=== PATIENT | male | born 1960 | race African-American/Black ===

== ENCOUNTER 2021-09-02 23:50 | Inpatient (IN) | payer MEDICAID ==
[~2021-09-02] VITALS: Ht 167.6 cm; Wt 54.0 kg
[2021-09-03] MEDS ORDERED: METHYLPREDNISOLONE SOD SUCC 125 MG/2 ML VIAL IV STA (00:47)
[2021-09-03] MEDS ORDERED: ALBUTEROL (0.083%) 2.5MG/3ML NEB HHN STA (00:47)
[2021-09-03] MEDS ORDERED: IPRATROPIUM BROMIDE (0.02%) 0.5MG/2.5ML NEB HHN STA (00:47)
[2021-09-03] MEDS ORDERED: MORPHINE SULFATE 4 MG/ML CPJ (NOT FOR IM USE) IV STA (00:47)
[2021-09-03] MEDS ORDERED: ONDANSETRON HCL 4MG/2ML INJ IV STA (00:47)
[2021-09-03] MEDS ORDERED: SODIUM CHLORIDE 0.9% 1,000 ML IV ONE (01:00)
[2021-09-03] MEDS ORDERED: AZITHROMYCIN 500MG/250ML 250 ML IV ONE (01:15)
[2021-09-03] MEDS ORDERED: CEFTRIAXONE 1 G PREMIX 50 ML IV ONE (01:15)
[2021-09-03] MEDS ORDERED: SODIUM CHLORIDE 0.9% 1000ML BAG (SEPSIS BOLUS) IV ONE (01:15)
[2021-09-03] MEDS ORDERED: FAMOTIDINE 20MG/2ML VIAL IV ONE (01:15)
[2021-09-03 01:29] LABS: INR 1.2; PARTIAL THROMBOPLASTIN TIME 29.6 sec (23.4-31.0); PROTHROMBIN TIME 12.3 sec (9.6-11.0)
[2021-09-03 01:46] LABS: HEMATOCRIT. 35.9 % (42.0-52.0); HEMOGLOBIN. 12.1 g/dL (14.0-18.0); MEAN CORPUSCULAR HEMOGLOBIN 34.4 pg (28.0-32.0); MEAN CORPUSCULAR VOLUME 101.8 fL (80.0-94.0); MEAN PLATELET VOLUME 6.8 fl (7.4-10.4); PLATELET 548 x1000/uL (130-400); RED BLOOD CELL COUNT 3.53 mill/uL (4.7-6.1); RED CELL DISTRIBUTION WIDTH 12.7 % (11.6-14.6)
[2021-09-03 01:51] LABS: CHLORIDE 100 mEq/L (98-107)
[2021-09-03 04:31] LABS: PLATELET ESTIMATE INCREASED
[2021-09-03 05:40] LABS: CLARITY URINE CLEAR (CLEAR); COLOR URINE YELLOW (YELLOW); KETONES URINE 3+ (NEGATIVE); LEUKOCYTE ESTERASE URINE NEGATIVE (NEGATIVE); NITRITE URINE NEGATIVE (NEGATIVE); OCCULT BLOOD URINE NEGATIVE (NEGATIVE); PH URINE 5.5 (4.5-8.0); PROTEIN URINE 1+ (NEGATIVE); SPECIFIC GRAVITY URINE 1.026 (1.005-1.030)
[2021-09-03] MEDS: HYDROCODONE/ACETAMINOPHEN 10/325MG TABLET PO PRN (05:58)
[2021-09-03] MEDS ORDERED: NALOXONE HCL 0.4 MG/ML 1ML VIAL IV PRN (06:00)
[2021-09-03] MEDS ORDERED: ACETAMINOPHEN 325MG TABLET PO PRN (08:15)
[2021-09-03] MEDS ORDERED: CEFTRIAXONE 1 G PREMIX 50 ML IV SCH (08:15)
[2021-09-03] MEDS ORDERED: ONDANSETRON HCL 4MG/2ML INJ IV PRN (08:15)
[2021-09-03] MEDS: DEXT 5%/0.45% NACL 1000ML 1,000 ML IV SCH ×2 (08:56→19:55)
[2021-09-03] MEDS ORDERED: THIAMINE HCL 100MG TABLET PO SCH (09:00)
[2021-09-03] MEDS: METHYLPREDNISOLONE SOD SUCC 40 MG/ML VIAL IV SCH ×2 (10:07→18:08)
[2021-09-03 15:02] LABS: *AMPHETAMINES SCREEN URINE NEGATIVE (NEGATIVE); *BARBITURATES SCREEN URINE NEGATIVE (NEGATIVE); *BENZODIAZEPINES SCREEN URINE NEGATIVE (NEGATIVE); METHADONE URINE SCREEN NEGATIVE (NEGATIVE); OPIATES URINE SCREEN PRESUMTIVE POSITIVE (NEGATIVE)
[2021-09-03 15:03] LABS: CANNABINOID URINE SCREEN PRESUMTIVE POSITIVE (NEGATIVE); PHENCYCLIDINE URINE SCREEN NEGATIVE (NEGATIVE)
[2021-09-03 15:05] LABS: *COCAINE SCREEN URINE NEGATIVE (NEGATIVE)
[2021-09-03] MEDS: THIAMINE HCL 100MG TABLET PO SCH (15:07)
[2021-09-03] MEDS ORDERED: SODIUM BICARBONATE 4% (2.4MEQ) 5ML VIAL IV ONE (15:15)
[2021-09-03] MEDS ORDERED: LIDOCAINE HCL 1% 30ML VIAL (10MG/ML) ONE (15:15)
[2021-09-03 21:00] VITALS: BP 126/82
[2021-09-03] MEDS: FAMOTIDINE 20MG/2ML VIAL IV SCH (21:36)
[2021-09-03] MEDS: MORPHINE SULFATE 2 MG/ML CPJ (NOT FOR IM USE) IV PRN (21:37)
[2021-09-03 23:00] VITALS: BP 126/82
[2021-09-04] VITALS: BP 118/83
[2021-09-04] MEDS: CEFTRIAXONE 1,000 MG in DEXTROSE 5% WATER 50 ML IV SCH (01:12)
[2021-09-04] MEDS: METHYLPREDNISOLONE SOD SUCC 40 MG/ML VIAL IV SCH ×3 (01:34→15:50)
[2021-09-04] MEDS: MORPHINE SULFATE 2 MG/ML CPJ (NOT FOR IM USE) IV PRN ×3 (01:36→16:16)
[2021-09-04] MEDS: AZITHROMYCIN 500 MG in DEXT 5% WATER 250 ML IV SCH (02:54)
[2021-09-04 04:00] VITALS: BP 116/80
[2021-09-04] MEDS ORDERED: OMEP40CA20 PO (04:29)
[2021-09-04] MEDS ORDERED: NAPR-1164 PO (04:29)
[2021-09-04 06:22] LABS: HEMATOCRIT. 33.8 % (42.0-52.0); HEMOGLOBIN. 11.4 g/dL (14.0-18.0); MEAN CORPUSCULAR HEMOGLOBIN 33.5 pg (28.0-32.0); MEAN CORPUSCULAR VOLUME 99.7 fL (80.0-94.0); MEAN PLATELET VOLUME 7.4 fl (7.4-10.4); PLATELET 561 x1000/uL (130-400); RED BLOOD CELL COUNT 3.39 mill/uL (4.7-6.1)
[2021-09-04 07:22] LABS: CHLORIDE 101 mEq/L (98-107)
[2021-09-04 08:00] VITALS: BP 124/87
[2021-09-04] MEDS: FAMOTIDINE 20MG/2ML VIAL IV SCH ×2 (08:45→20:36)
[2021-09-04] MEDS: THIAMINE HCL 100MG TABLET PO SCH (08:45)
[2021-09-04 12:00] VITALS: BP 132/81
[2021-09-04] MEDS: DEXT 5%/0.45% NACL 1000ML 1,000 ML IV SCH ×2 (13:00→15:49)
[2021-09-04 16:00] VITALS: BP 118/83
[2021-09-04 16:23] LABS: PLATELET ESTIMATE INCREASED
[2021-09-04 20:00] VITALS: BP 125/80
[2021-09-05] VITALS: BP 117/85
[2021-09-05] MEDS: DEXT 5%/0.45% NACL 1000ML 1,000 ML IV SCH ×3 (00:25→20:42)
[2021-09-05] MEDS: CEFTRIAXONE 1,000 MG in DEXTROSE 5% WATER 50 ML IV SCH (00:25)
[2021-09-05] MEDS: MORPHINE SULFATE 2 MG/ML CPJ (NOT FOR IM USE) IV PRN ×4 (01:37→20:40)
[2021-09-05] MEDS: AZITHROMYCIN 500 MG in DEXT 5% WATER 250 ML IV SCH (03:57)
[2021-09-05 04:00] VITALS: BP 130/80
[2021-09-05 08:00] VITALS: BP 111/83
[2021-09-05] MEDS: THIAMINE HCL 100MG TABLET PO SCH (08:59)
[2021-09-05] MEDS: FAMOTIDINE 20MG/2ML VIAL IV SCH ×2 (09:00→20:42)
[2021-09-05] MEDS: PREDNISONE 20MG TABLET PO SCH (09:00)
[2021-09-05] MEDS ORDERED: THIA100T72 PO (11:37)
[2021-09-05] MEDS ORDERED: LEVO500T89 MT (11:37)
[2021-09-05 12:00] VITALS: BP 124/91
[2021-09-05 14:16] LABS: HEMATOCRIT. 40.3 % (42.0-52.0); HEMOGLOBIN. 13.3 g/dL (14.0-18.0); MEAN CORPUSCULAR HEMOGLOBIN 33.7 pg (28.0-32.0); MEAN CORPUSCULAR VOLUME 101.7 fL (80.0-94.0); PLATELET 542 x1000/uL (130-400); RED BLOOD CELL COUNT 3.96 mill/uL (4.7-6.1); RED CELL DISTRIBUTION WIDTH 12.7 % (11.6-14.6)
[2021-09-05 14:18] LABS: CHLORIDE 105 mEq/L (98-107)
[2021-09-05 16:30] VITALS: BP 118/62
[2021-09-05 20:00] VITALS: BP 139/60
[2021-09-05 21:23] LABS: PLATELET ESTIMATE INCREASED
[2021-09-06] VITALS: BP 129/85
[2021-09-06] MEDS: CEFTRIAXONE 1,000 MG in DEXTROSE 5% WATER 50 ML IV SCH (00:38)
[2021-09-06] MEDS: MORPHINE SULFATE 2 MG/ML CPJ (NOT FOR IM USE) IV PRN ×3 (00:48→09:22)
[2021-09-06] MEDS: AZITHROMYCIN 500 MG in DEXT 5% WATER 250 ML IV SCH (03:10)
[2021-09-06 04:00] VITALS: BP 129/70
[2021-09-06] MEDS: DEXT 5%/0.45% NACL 1000ML 1,000 ML IV SCH ×3 (05:26→16:35)
[2021-09-06 08:01] VITALS: BP 117/85
[2021-09-06] MEDS: FAMOTIDINE 20MG/2ML VIAL IV SCH (08:26)
[2021-09-06] MEDS: PREDNISONE 20MG TABLET PO SCH (08:26)
[2021-09-06] MEDS: THIAMINE HCL 100MG TABLET PO SCH (08:26)
[2021-09-06] MEDS ORDERED: LIDOCAINE HCL 1% 10 MG/ML 10ML VIAL ONE (10:13)
[2021-09-06] MEDS ORDERED: SODIUM BICARBONATE 4% (2.4MEQ) 5ML VIAL IV ONE (10:14)
[2021-09-06 12:00] VITALS: BP 118/84
[2021-09-06] MEDS: HYDROCODONE/ACETAMINOPHEN 10/325MG TABLET PO PRN (13:48)
[2021-09-06] MEDS: IPRATROPIUM/ALBUTEROL 0.5-3(2.5)MG/3ML NEB HHN SCH ×2 (13:53→16:19)
[2021-09-06 16:00] VITALS: BP 116/82
== END 2021-09-06 18:35 | disposition home or self-care (01) | DRG 282 ==
LOC: ER 23:50 → MICUSO 09-03 03:52 → 8WST 09-03 19:47
PROVIDERS: ADMIT Internal Medicine; ATTEND Internal Medicine
PROC: 0W9G3ZZ Drainage of Peritoneal Cavity, Percutaneous Approach (ICD-10-PCS; principal; 2021-09-03)
PROC: 0W9G3ZZ Drainage of Peritoneal Cavity, Percutaneous Approach (ICD-10-PCS; 2021-09-06)
DX: K85.90 Acute pancreatitis without necrosis or infection, unspecified (principal); R65.11 Systemic inflammatory response syndrome (SIRS) of non-infectious origin with acute organ dysfunction; E43 Unspecified severe protein-calorie malnutrition; J18.9 Pneumonia, unspecified organism; R18.8 Other ascites; E87.1 Hypo-osmolality and hyponatremia; D64.9 Anemia, unspecified; Z20.822 Contact with and (suspected) exposure to COVID-19; J40 Bronchitis, not specified as acute or chronic; F10.10 Alcohol abuse, uncomplicated; Y90.9 Presence of alcohol in blood, level not specified; Z68.1 Body mass index [BMI] 19.9 or less, adult; Z71.41 Alcohol abuse counseling and surveillance of alcoholic
CPT/HCPCS: 36415; 49083; 71045; 74176; 76705; 80048; 80053; 80305; 81003; 83605; 83880; 84484; 85025; 93005; 94640; 94644; 99285; J0456; J0696; J2270; J2405; J2920; J2930; J3490; J7030; J7060; J7512; U0003; U0005

== ENCOUNTER 2021-09-07 15:12 | Inpatient (IN) | payer MEDICAID ==
[~2021-09-07] VITALS: Ht 167.6 cm; Wt 56.7 kg
[~2021-09-07 15:12] MED LIST: LEVO500T89 MT; NAPR-1164 PO; OMEP40CA20 PO; THIA100T72 PO
[2021-09-07] MEDS ORDERED: MORPHINE SULFATE 4 MG/ML CPJ (NOT FOR IM USE) IV STA (15:50)
[2021-09-07 16:15] LABS: HEMATOCRIT. 39.7 % (42.0-52.0); HEMOGLOBIN. 13.5 g/dL (14.0-18.0); MEAN CORPUSCULAR HEMOGLOBIN 33.1 pg (28.0-32.0); MEAN CORPUSCULAR VOLUME 97.6 fL (80.0-94.0); MEAN PLATELET VOLUME 6.8 fl (7.4-10.4); PLATELET 633 x1000/uL (130-400); RED BLOOD CELL COUNT 4.06 mill/uL (4.7-6.1); RED CELL DISTRIBUTION WIDTH 12.9 % (11.6-14.6)
[2021-09-07 16:20] LABS: CHLORIDE 101 mEq/L (98-107)
[2021-09-07] MEDS ORDERED: SODIUM CHLORIDE 0.9% 1,000 ML IV ONE (16:45)
[2021-09-07 16:49] LABS: PLATELET ESTIMATE INCREASED
[2021-09-07 17:42] LABS: BG BASE EXCESS 0.1 mmol/L (-2.0-2.0); BG CARBOXYHEMOGLOBIN 1.2 % (0.5-1.5); BG DEOXYHEMOGLOBIN 3.2 % (0.0-5.0); BG FRACTION INSPIRED OXYGEN 21; BG HCO3 ACT 22.9 mmol/L (22.0-26.0); BG METHEMOGLOBIN 0.3 % (0.0-1.5); BG OXYGEN SATURATION 96.8 % (92.0-98.5); BG OXYHEMOGLOBIN 95.3 % (94.0-97.0); BG PCO2 31.8 mmHg (35.0-45.0); BG PH 7.475 (7.350-7.450); BG PO2 83.4 mmHg (75.0-100.0); BG SAMPLE SITE RIGHT RADIAL; BG TOTAL HEMOGLOBIN 13.7 g/dL (12.0-18.0); BG VENT MODE ROOM AIR
[2021-09-07 23:54] LABS: CLARITY URINE CLEAR (CLEAR); COLOR URINE DARK YELLOW (YELLOW); KETONES URINE 2+ (NEGATIVE); LEUKOCYTE ESTERASE URINE NEGATIVE (NEGATIVE); NITRITE URINE NEGATIVE (NEGATIVE); OCCULT BLOOD URINE NEGATIVE (NEGATIVE); PROTEIN URINE 1+ (NEGATIVE); SPECIFIC GRAVITY URINE 1.029 (1.005-1.030)
[2021-09-08] MEDS: MORPHINE SULFATE 2 MG/ML CPJ (NOT FOR IM USE) IV PRN ×3 (06:52→19:49)
[2021-09-08 10:49] VITALS: BP 107/82
[2021-09-08] MEDS ORDERED: POTASSIUM CHLORIDE 20MEQ TABLET SR PO NR (11:15)
[2021-09-08] MEDS ORDERED: ONDANSETRON HCL 4MG/2ML INJ IV PRN (11:15)
[2021-09-08] MEDS ORDERED: ACETAMINOPHEN 325MG TABLET PO PRN (11:15)
[2021-09-08 12:00] VITALS: BP 115/80
[2021-09-08] MEDS: DEXT 5%/0.45% NACL 1000ML 1,000 ML IV SCH ×2 (13:51→22:33)
[2021-09-08] MEDS: LEVOFLOXACIN 500MG PREMIX 100 ML IV SCH (13:51)
[2021-09-08] MEDS ORDERED: IOHEXOL-350 100 ML BOTTLE ONE ×2 (14:14→15:29)
[2021-09-08 16:00] VITALS: BP 110/73
[2021-09-08 20:00] VITALS: BP 107/56
[2021-09-09] VITALS: BP 107/75
[2021-09-09] MEDS: MORPHINE SULFATE 2 MG/ML CPJ (NOT FOR IM USE) IV PRN ×3 (00:29→10:27)
[2021-09-09 04:00] VITALS: BP 139/59
[2021-09-09] MEDS: DEXT 5%/0.45% NACL 1000ML 1,000 ML IV SCH ×2 (06:22→17:58)
[2021-09-09 06:47] LABS: HEMATOCRIT. 37.5 % (42.0-52.0); HEMOGLOBIN. 12.6 g/dL (14.0-18.0); MEAN CORPUSCULAR HEMOGLOBIN 33.5 pg (28.0-32.0); MEAN CORPUSCULAR VOLUME 99.3 fL (80.0-94.0); PLATELET 633 x1000/uL (130-400); RED BLOOD CELL COUNT 3.78 mill/uL (4.7-6.1)
[2021-09-09 07:01] LABS: CHLORIDE 98 mEq/L (98-107)
[2021-09-09 08:00] VITALS: BP 105/73
[2021-09-09 12:00] VITALS: BP 103/71
[2021-09-09] MEDS: LEVOFLOXACIN 500MG PREMIX 100 ML IV SCH (13:07)
[2021-09-09 13:09] LABS: PLATELET ESTIMATE INCREASED
[2021-09-09] MEDS: HYDROCODONE/ACETAMINOPHEN 10/325MG TABLET PO PRN ×2 (14:31→21:16)
[2021-09-09 16:00] VITALS: BP 106/76
[2021-09-09 20:00] VITALS: BP 103/70
[2021-09-10] VITALS: BP 98/73
[2021-09-10] MEDS: DEXT 5%/0.45% NACL 1000ML 1,000 ML IV SCH ×2 (03:18→12:33)
[2021-09-10] MEDS: HYDROCODONE/ACETAMINOPHEN 10/325MG TABLET PO PRN ×4 (03:22→22:38)
[2021-09-10 04:00] VITALS: BP 98/68
[2021-09-10 08:00] VITALS: BP 102/72
[2021-09-10 12:00] VITALS: BP 103/66
[2021-09-10] MEDS: LEVOFLOXACIN 500MG PREMIX 100 ML IV SCH (12:33)
[2021-09-10 16:00] VITALS: BP 107/65
[2021-09-10] MEDS ORDERED: NALOXONE HCL 0.4MG/ML VIAL IV PRN (19:30)
[2021-09-10 20:00] VITALS: BP 101/67
[2021-09-11] VITALS: BP 115/78
[2021-09-11] MEDS: DEXT 5%/0.45% NACL 1000ML 1,000 ML IV SCH ×3 (00:21→19:22)
[2021-09-11 04:00] VITALS: BP 114/82
[2021-09-11] MEDS: HYDROCODONE/ACETAMINOPHEN 10/325MG TABLET PO PRN ×3 (04:31→21:37)
[2021-09-11 08:00] VITALS: BP 113/73
[2021-09-11 12:00] VITALS: BP 116/80
[2021-09-11] MEDS: LEVOFLOXACIN 500MG PREMIX 100 ML IV SCH (12:01)
[2021-09-11 16:00] VITALS: BP 110/78
[2021-09-11 16:04] LABS: HEMATOCRIT. 37.6 % (42.0-52.0); HEMOGLOBIN. 12.8 g/dL (14.0-18.0); MEAN CORPUSCULAR HEMOGLOBIN 32.9 pg (28.0-32.0); MEAN CORPUSCULAR VOLUME 96.8 fL (80.0-94.0); MEAN PLATELET VOLUME 7.3 fl (7.4-10.4); PLATELET 654 x1000/uL (130-400); RED BLOOD CELL COUNT 3.89 mill/uL (4.7-6.1); RED CELL DISTRIBUTION WIDTH 13.3 % (11.6-14.6)
[2021-09-11 16:39] LABS: CHLORIDE 97 mEq/L (98-107)
[2021-09-11 16:44] LABS: PLATELET ESTIMATE INCREASED
[2021-09-11 20:00] VITALS: BP 103/82
[2021-09-12] VITALS: BP 109/84
[2021-09-12] MEDS: HYDROCODONE/ACETAMINOPHEN 10/325MG TABLET PO PRN ×4 (03:37→22:11)
[2021-09-12 04:00] VITALS: BP 108/80
[2021-09-12] MEDS: DEXT 5%/0.45% NACL 1000ML 1,000 ML IV SCH ×2 (05:35→16:04)
[2021-09-12 08:00] VITALS: BP 108/78
[2021-09-12 12:00] VITALS: BP 103/71
[2021-09-12] MEDS: LEVOFLOXACIN 500MG PREMIX 100 ML IV SCH (13:30)
[2021-09-12 16:00] VITALS: BP 104/78
[2021-09-12 20:00] VITALS: BP 120/70
[2021-09-13] VITALS: BP 115/72
[2021-09-13] MEDS: DEXT 5%/0.45% NACL 1000ML 1,000 ML IV SCH ×3 (00:11→21:39)
[2021-09-13 04:00] VITALS: BP 116/74
[2021-09-13] MEDS: HYDROCODONE/ACETAMINOPHEN 10/325MG TABLET PO PRN ×4 (04:35→23:17)
[2021-09-13 08:00] VITALS: BP 116/80
[2021-09-13] MEDS ORDERED: HYDROMORPHONE HCL/PF 2MG/ML CPJ IV PRN (11:15)
[2021-09-13] MEDS ORDERED: NALOXONE HCL 0.4MG/ML VIAL IV PRN (11:30)
[2021-09-13 12:00] VITALS: BP 112/77
[2021-09-13 13:15] LABS: AMYLASE 1667 IU/L (25-115)
[2021-09-13 16:00] VITALS: BP 133/82
[2021-09-13 20:00] VITALS: BP 119/70
[2021-09-14] VITALS: BP 112/72
[2021-09-14 04:00] VITALS: BP 115/75
[2021-09-14] MEDS: HYDROCODONE/ACETAMINOPHEN 10/325MG TABLET PO PRN ×4 (04:32→20:43)
[2021-09-14 07:22] LABS: CHLORIDE 100 mEq/L (98-107); HEMATOCRIT. 34.4 % (42.0-52.0); HEMOGLOBIN. 11.9 g/dL (14.0-18.0); MEAN CORPUSCULAR VOLUME 95.1 fL (80.0-94.0); MEAN PLATELET VOLUME 6.9 fl (7.4-10.4); PLATELET 618 x1000/uL (130-400); RED BLOOD CELL COUNT 3.61 mill/uL (4.7-6.1); RED CELL DISTRIBUTION WIDTH 13.4 % (11.6-14.6)
[2021-09-14 08:00] VITALS: BP 128/97
[2021-09-14] MEDS: DEXT 5%/0.45% NACL 1000ML 1,000 ML IV SCH ×2 (09:26→17:15)
[2021-09-14 10:07] LABS: PLATELET ESTIMATE INCREASED
[2021-09-14 12:00] VITALS: BP 105/78
[2021-09-14 16:00] VITALS: BP 116/75
[2021-09-14 20:00] VITALS: BP 117/89
[2021-09-14 21:02] LABS: INR 1.6; PROTHROMBIN TIME 16.7 sec (9.6-11.0)
[2021-09-14] MEDS ORDERED: PHYTONADIONE 10MG/ML AMP SUBCUT NR (21:15)
[2021-09-15] VITALS: BP 118/85
[2021-09-15] MEDS: HYDROCODONE/ACETAMINOPHEN 10/325MG TABLET PO PRN ×6 (01:10→23:13)
[2021-09-15] MEDS: DEXT 5%/0.45% NACL 1000ML 1,000 ML IV SCH ×3 (03:29→23:14)
[2021-09-15 04:00] VITALS: BP 113/69
[2021-09-15 06:15] LABS: INR 1.3
[2021-09-15 06:16] LABS: HEMATOCRIT. 35.6 % (42.0-52.0); HEMOGLOBIN. 12.2 g/dL (14.0-18.0); MEAN CORPUSCULAR HEMOGLOBIN 33.1 pg (28.0-32.0); MEAN CORPUSCULAR VOLUME 96.6 fL (80.0-94.0); MEAN PLATELET VOLUME 6.6 fl (7.4-10.4); PLATELET 603 x1000/uL (130-400); RED BLOOD CELL COUNT 3.68 mill/uL (4.7-6.1); RED CELL DISTRIBUTION WIDTH 13.5 % (11.6-14.6)
[2021-09-15 06:19] LABS: CHLORIDE 101 mEq/L (98-107)
[2021-09-15 07:26] LABS: AMYLASE 1842 IU/L (25-115)
[2021-09-15 08:00] VITALS: BP 111/54
[2021-09-15] MEDS ORDERED: MAGNESIUM 4 G PREMIX 100 ML IV NR (10:00)
[2021-09-15 12:00] VITALS: BP 109/70
[2021-09-15 12:57] LABS: PLATELET ESTIMATE INCREASED
[2021-09-15] MEDS ORDERED: SODIUM BICARBONATE 4% (2.4MEQ) 5ML VIAL IV ONE (14:52)
[2021-09-15] MEDS ORDERED: LIDOCAINE HCL 1% 10 MG/ML 10ML VIAL ONE (14:53)
[2021-09-15 16:00] VITALS: BP 115/76
[2021-09-15 20:00] VITALS: BP 126/80
[2021-09-16] VITALS: BP 118/72
[2021-09-16] MEDS: HYDROCODONE/ACETAMINOPHEN 10/325MG TABLET PO PRN ×5 (03:14→20:52)
[2021-09-16 04:00] VITALS: BP 124/70
[2021-09-16 08:00] VITALS: BP 102/76
[2021-09-16] MEDS: DEXT 5%/0.45% NACL 1000ML 1,000 ML IV SCH ×2 (09:15→20:53)
[2021-09-16 12:00] VITALS: BP 131/71
[2021-09-16 16:00] VITALS: BP 116/87
[2021-09-16 20:00] VITALS: BP 110/69
[2021-09-16] MEDS: PIPERACILLIN/TAZOBACTAM 3.375 G in DEXTROSE 5% WATER 50 ML IV SCH (20:53)
[2021-09-17] VITALS (7 sets, daily range): BP systolic 112–134; BP diastolic 75–88
[2021-09-17] MEDS: HYDROCODONE/ACETAMINOPHEN 10/325MG TABLET PO PRN ×6 (01:06→22:18)
[2021-09-17] MEDS: DEXT 5%/0.45% NACL 1000ML 1,000 ML IV SCH (05:10)
[2021-09-17] MEDS: PIPERACILLIN/TAZOBACTAM 3.375 G in DEXTROSE 5% WATER 50 ML IV SCH ×3 (05:12→20:30)
[2021-09-17 07:24] LABS: HEMATOCRIT 36.9 % (42.0-52.0); HEMOGLOBIN 12.6 g/dL (14.0-18.0); MEAN CORPUSCULAR VOLUME 96.4 fL (80.0-94.0); PLATELET 574 x1000/uL (130-400); RED BLOOD CELL COUNT 3.82 mill/uL (4.7-6.1); RED CELL DISTRIBUTION WIDTH 13.2 % (11.6-14.6)
[2021-09-17 07:28] LABS: CHLORIDE 99 mEq/L (98-107)
[2021-09-17 07:39] LABS: AMYLASE 962 IU/L (25-115)
[2021-09-18] VITALS: BP 124/81
[2021-09-18] MEDS: DEXT 5%/0.45% NACL 1000ML 1,000 ML IV SCH ×2 (00:22→11:21)
[2021-09-18] MEDS: HYDROCODONE/ACETAMINOPHEN 10/325MG TABLET PO PRN ×2 (02:18→06:28)
[2021-09-18 04:00] VITALS: BP 126/90
[2021-09-18] MEDS: PIPERACILLIN/TAZOBACTAM 3.375 G in DEXTROSE 5% WATER 50 ML IV SCH ×2 (05:56→13:49)
[2021-09-18 07:45] LABS: HEMOGLOBIN 11.9 g/dL (14.0-18.0); MEAN CORPUSCULAR HEMOGLOBIN 32.9 pg (28.0-32.0); MEAN CORPUSCULAR VOLUME 96.8 fL (80.0-94.0); PLATELET 590 x1000/uL (130-400); RED BLOOD CELL COUNT 3.62 mill/uL (4.7-6.1); RED CELL DISTRIBUTION WIDTH 13.5 % (11.6-14.6)
[2021-09-18 08:35] LABS: CHLORIDE 97 mEq/L (98-107)
[2021-09-18 08:47] LABS: AMYLASE 943 IU/L (25-115)
[2021-09-18] MEDS ORDERED: LACTULOSE 20G/30ML UDC PO NR (13:45)
[2021-09-18] MEDS ORDERED: POLYETHYLENE GLYCOL 3350 (17GM) 1 DOSE PACK PO NR (13:45)
[2021-09-18] MEDS ORDERED: DICYCLOMINE HCL 10MG CAPSULE PO NR (14:45)
[2021-09-18 16:24] VITALS: BP 125/84
== END 2021-09-18 17:50 | disposition home or self-care (01) | DRG 720 ==
LOC: ER 15:12 → MICUSO 09-08 00:24 → 7EST 09-08 07:15 → 6EST 09-14 12:55
PROVIDERS: ADMIT Internal Medicine; ATTEND Internal Medicine
PROC: 0W9G3ZZ Drainage of Peritoneal Cavity, Percutaneous Approach (ICD-10-PCS; 2021-09-08)
PROC: 0W9G3ZZ Drainage of Peritoneal Cavity, Percutaneous Approach (ICD-10-PCS; principal; 2021-09-15)
DX: A41.9 Sepsis, unspecified organism (principal); K85.90 Acute pancreatitis without necrosis or infection, unspecified; E43 Unspecified severe protein-calorie malnutrition; R18.8 Other ascites; E83.51 Hypocalcemia; E87.8 Other disorders of electrolyte and fluid balance, not elsewhere classified; E87.1 Hypo-osmolality and hyponatremia; I10 Essential (primary) hypertension; I70.8 Atherosclerosis of other arteries; E87.6 Hypokalemia; D64.9 Anemia, unspecified; Z20.822 Contact with and (suspected) exposure to COVID-19; E83.42 Hypomagnesemia; F17.200 Nicotine dependence, unspecified, uncomplicated; Z76.5 Malingerer [conscious simulation]; Z79.2 Long term (current) use of antibiotics; Z87.01 Personal history of pneumonia (recurrent); Z79.899 Other long term (current) drug therapy; Z71.41 Alcohol abuse counseling and surveillance of alcoholic; Z68.20 Body mass index [BMI] 20.0-20.9, adult; F10.11 Alcohol abuse, in remission
CPT/HCPCS: 36415; 36600; 49083; 71045; 74176; 74181; 75635; 76700; 80048; 80053; 81003; 82150; 82248; 82375; 82805; 83735; 83880; 84484; 85025; 85027; 87426; 93005; 93923; 97162; 99285; J1956; J2270; J2543; J3430; J3475; J3490; J7030; J7060; Q9967